=== PATIENT | female | born 1985 ===

== ENCOUNTER 2017-05-08 20:21 | Emergency (ER) | payer BC ==
[2017-05-08 20:25] VITALS: BP 131/77; PULSE 83; RESP 18; TEMP 98.4; O2SAT 99
--- NOTE | 2017-05-08 20:42 | ED PDOC ---
HPI: Wound Care - HPI Time Seen by Provider: 05/08/17 20:26 Chief Complaint (Nursing): Abnormal Skin Integrity Chief Complaint (Provider): laceration History Per: Patient Exam Limitations: no limitations Additional Complaint(s): 32yo F in ED for eval of 3rd finger left hand laceration sustained today at 1pm after cutting food . laceration to dorsal aspect of DIP without nail involvement with continued bleeding . tetanus is not uptodate. Pt has FROM of digit. Past Medical History Reviewed: Historical Data, Nursing Documentation, Vital Signs Vital Signs: Last Vital Signs Temp 98.4 F 05/08/17 20:23 Pulse 83 05/08/17 20:23 Resp 18 05/08/17 20:23 BP 131/77 05/08/17 20:23 Pulse Ox 99 05/08/17 20:23 - Medical History PMH: No Chronic Diseases - Family History Family History: States: No Known Family Hx - Allergies Allergies/Adverse Reactions: Allergies Allergy/AdvReac Type Severity Reaction Status Date / Time No Known Allergies Allergy Verified 05/08/17 20:23 Review of Systems ROS Statement: Except As Marked, All Systems Reviewed And Found Negative Constitutional: Negative for: Fever Skin: Positive for: Lesions Physical Exam - Reviewed Nursing Documentation Reviewed: Yes Vital Signs Reviewed: Yes - Physical Exam Appears: Positive for: Well, Non-toxic, No Acute Distress Skin: Positive for: Normal Color, Warm, DRY Neck: Positive for: Normal, Painless ROM Cardiovascular/Chest: Positive for: Regular Rate, Rhythm Respiratory: Positive for: CNT, Normal Breath Sounds Extremity: Positive for: Other (left hand: 3rd finger dorsal near nail bed without nail bed involvment no swelling mild bleeding FROM laceraiont .5cm superficial) Neurologic/Psych: Positive for: Alert, Oriented - ECG O2 Sat by Pulse Oximetry: 99 Medical Decision Making Medical Decision Making: wound care: irrigated with NS, tetatnus updated repair with dermabond and steristrips finger splint provided. instructions on wound care. Disposition - Clinical Impression Clinical Impression: Laceration - Patient ED Disposition Is Patient to be Admitted: No Counseled Patient/Family Regarding: Studies Performed, Diagnosis, Need For Followup, Rx Given - Disposition Disposition: Routine/Home Disposition Time: 20:45 Condition: STABLE Additional Instructions: do not wet wound for 12 hours. allow steri strips to come off on their own./ Instructions: Laceration (ED), Finger Laceration (ED) Print Language: [email or web address]
[2017-05-08] MEDS ORDERED: Liquid Adhesive TOP ONE (20:44)
== END 2017-05-08 21:56 | disposition home or self-care (01) ==
LOC: H.ER 20:21
DX: S61.213A Laceration without foreign body of left middle finger without damage to nail, initial encounter (principal); W45.8XXA Other foreign body or object entering through skin, initial encounter; Y93.G9 Activity, other involving cooking and grilling